=== PATIENT | female | born 1990 | race Caucasian/White ===

== ENCOUNTER 2023-02-18 12:18 | Emergency (ER) | payer OTHER ==
[~2023-02-18] VITALS: Ht 162.5 cm; Wt 72.6 kg
[2023-02-18] MEDS ORDERED: HYDROCODONE-AC1 EACH PO (12:36)
[2023-02-18] MEDS ORDERED: PENICILLIN-VK500 MG PO (12:36)
== END 2023-02-18 12:52 | disposition home or self-care (01) ==
LOC: ED 12:18
DX: K08.89 Other specified disorders of teeth and supporting structures (principal); Z88.8 Allergy status to other drugs, medicaments and biological substances

== ENCOUNTER 2023-02-20 12:52 | Emergency (ER) | payer OTHER ==
[~2023-02-20] VITALS: Ht 162.5 cm; Wt 72.6 kg
[~2023-02-20 12:52] MED LIST: HYDROCODONE-AC1 EACH PO; PENICILLIN-VK500 MG PO
[2023-02-20 14:07] LABS: BASO % 0.4 % (0.0-1.0); EOS # 0.1 10*3/uL (0.0-0.4); EOS % 1.2 % (1.0-4.0); HEMATOCRIT 39.5 % (37.0-47.0); LYMPH # 1.9 10*3/uL (1.3-4.4); LYMPH % 36.5 % (27.0-41.0); MEAN CELL VOLUME 93.4 fl (81.0-99.0); MEAN CORPUSCULAR HGB 31.4 pg (27.0-31.0); MEAN CORPUSCULAR HGB CONC 33.7 g/dl (33.0-37.0); MEAN PLATELET VOLUME 9.9 fl (9.6-12.3); MONO # 0.4 10*3/uL (0.1-1.0); MONO % 8.6 % (3.0-9.0); NEUT # 2.7 10*3/uL (2.3-7.9); NEUT % 52.9 % (47.0-73.0); PLATELET COUNT AUTOMATED 180 10*3/uL (130-400); RED BLOOD COUNT 4.23 10*6/uL (4.10-5.10); RED CELL DISTRI WIDTH 12.7 % (0-14.5); WHITE BLOOD COUNT 5.1 10*3/uL (4.8-10.8)
[2023-02-20 14:32] LABS: ALKALINE PHOSPHATASE 66 U/L (46-116); BUN 10 mg/dl (9-23); CHLORIDE 107 mmol/L (98-107); POTASSIUM 4.5 mmol/L (3.4-5.1)
[2023-02-20 14:38] LABS: SGPT/ALT < 7 U/L (10-49)
[2023-02-20] MEDS ORDERED: NAPROSYN500 MG PO (15:25)
== END 2023-02-20 15:39 | disposition home or self-care (01) ==
LOC: ED 12:52
PROVIDERS: Nurse Practitioner Family
DX: R22.9 Localized swelling, mass and lump, unspecified (principal); Z88.8 Allergy status to other drugs, medicaments and biological substances

== ENCOUNTER 2023-03-06 21:34 | Emergency (ER) | payer OTHER ==
[~2023-03-06] VITALS: Wt 72.6 kg
[~2023-03-06 21:34] MED LIST changes: +NAPROSYN500 MG PO
[2023-03-06] MEDS ORDERED: GABAPENTIN800 MG PO (22:21)
[2023-03-06] MEDS ORDERED: CITALOPRAM20 MG PO (22:21)
[2023-03-07] MEDS ORDERED: HYDROCODONE-AC1 EAC1 PO (18:20)
== END 2023-03-07 01:58 | disposition home or self-care (01) ==
LOC: ED 21:34
DX: S86.911A Strain of unspecified muscle(s) and tendon(s) at lower leg level, right leg, initial encounter (principal); M23.91 Unspecified internal derangement of right knee; Z88.8 Allergy status to other drugs, medicaments and biological substances; Z90.711 Acquired absence of uterus with remaining cervical stump; Z87.891 Personal history of nicotine dependence; W01.0XXA Fall on same level from slipping, tripping and stumbling without subsequent striking against object, initial encounter; Y93.89 Activity, other specified; Y92.89 Other specified places as the place of occurrence of the external cause; Y99.8 Other external cause status

== ENCOUNTER 2023-03-12 17:22 | Emergency (ER) | payer OTHER ==
[~2023-03-12] VITALS: Wt 83.7 kg
[~2023-03-12 17:22] MED LIST changes: +CITALOPRAM20 MG PO; +GABAPENTIN800 MG PO; +HYDROCODONE-AC1 EAC1 PO
[2023-03-12] MEDS ORDERED: IBU800 M1 PO (18:20)
[2023-03-12] MEDS ORDERED: PREDNISONE50 MG PO (19:26)
[2023-03-12] MEDS ORDERED: HYDROCODONE-AC1 EACH PO (19:27)
== END 2023-03-12 20:02 | disposition home or self-care (01) ==
LOC: ED 17:22
DX: M17.11 Unilateral primary osteoarthritis, right knee (principal); Z88.8 Allergy status to other drugs, medicaments and biological substances; Z90.711 Acquired absence of uterus with remaining cervical stump